=== PATIENT | male | born 2000 | race Asian ===

== ENCOUNTER 2021-07-13 08:00 | Outpatient (CLI) | payer BC ==
[2021-07-13 18:10] LABS: BASOPHILS # (AUTO) 0.1 10^3/uL (0.0-0.1); BASOPHILS % (AUTO) 0.9 %; EOSINOPHILS # (AUTO) 0.1 10^3/uL (0.0-0.7); HCT - HEMATOCRIT 49.5 % (42.0-52.0); HGB - HEMOGLOBIN 16.1 g/dL (14.0-18.0); LYMPHOCYTES # (AUTO) 2.4 10^3/uL (1.5-3.5); MEAN CORPUSCULAR HEMOGLOBIN 29.8 pg (27.0-31.0); MEAN CORPUSCULAR HGB CONC 32.5 g/dL (32.0-36.0); MEAN CORPUSCULAR VOLUME 91.5 fL (80.0-94.0); MONOCYTES # (AUTO) 0.5 10^3/uL (0.0-1.0); MONOCYTES % (AUTO) 5.8 %; NEUTROPHILS # (AUTO) 4.7 10^3/uL (1.5-6.6); NEUTROPHILS % (AUTO) 60.9 %; PLT - PLATELET COUNT 385 10^3/uL (130-450); RED BLOOD COUNT 5.41 10^6/uL (4.70-6.10); RED CELL DISTRIBUTION WIDTH 13.2 % (12.0-15.0); WHITE BLOOD COUNT 7.7 x10^3/uL (4.8-10.8)
[2021-07-13 18:30] LABS: ALBUMIN 4.9 g/dL (3.2-5.5); ALBUMIN/GLOBULIN RATIO 1.4 (1.0-2.2); ALKALINE PHOSPHATASE 41 IU/L (42-121); ALT ALANINE AMINOTRANSFERASE 16 IU/L (10-60); AST ASPARTATE AMINOTRANSFERASE 18 IU/L (10-42); BILIRUBIN,TOTAL 0.9 mg/dL (0.2-1.0); BUN - BLOOD UREA NITROGEN 15 mg/dL (6-20); CALCIUM 9.8 mg/dL (8.5-10.3); CARBON DIOXIDE - CO2 29 mmol/L (21-32); CHLORIDE 103 mmol/L (101-111); CHOL/HDL RATIO 3.9 (<5.0); CHOLESTEROL 162 mg/dL; CREATININE 0.9 mg/dL (0.6-1.2); GFR - MDRD 106 (>89); GLUCOSE 84 mg/dL (70-100); HDL CHOLESTEROL 42 mg/dL; LDL CHOLESTEROL,CALCULATED 93 mg/dL; LDL/HDL RATIO 2.2 (<3.6); POTASSIUM 4.4 mmol/L (3.5-5.0); SODIUM 141 mmol/L (135-145); TOTAL PROTEIN 8.4 g/dL (6.7-8.2); TRIGLYCERIDES 133 mg/dL; VLDL CHOLESTEROL 27 mg/dL
[2021-07-13 18:39] LABS: THYROID STIMULATING HORMONE 1.79 uIU/mL (0.34-5.60)
== END 2021-07-13 23:59 | disposition home or self-care (01) ==
LOC: LAB.WCP 08:00
PROVIDERS: ATTEND Physician Assistant Medical
DX: Z00.00 Encounter for general adult medical examination without abnormal findings (principal); F41.9 Anxiety disorder, unspecified; F32.9 Major depressive disorder, single episode, unspecified
CPT/HCPCS: 36415; 80053; 80061; 82306; 82607; 83721; 84443; 85025

== ENCOUNTER 2021-12-13 15:25 | Outpatient (CLI) | payer BC ==
[2021-12-13 16:29] VITALS: BP 128/78
--- NOTE | 2021-12-13 16:29 | SLEEP CARE CONSULTATION ---
Information from patient questionnaire entered by Jessica Khanna MA. I have reviewed and concur with the information entered by Jessica Khanna MA. This document represents the service I personally performed and the decisions made by , Aruna Santos ARNP. History of Present Illness Service Date and Time: 12/13/2021 1525 Reason for Visit: New patient (ONSET 10/2011, NO PRIORS,) Chief Complaint: reports: Unrefreshed sleep, Snoring, Excessive daytime sleepine ss, Fatigue, Frequent awakenings at night Date of Onset: 10 PLUS YEARS Time it takes to fall asleep: LESS THAN 30 MINUTES Snores at night: Yes Observed to quit breathing while asleep: No Sleeps alone due to snoring: No Number of times waking at night: MULTIPLE Reasons for waking at night: reports: Other Toss, Turn, or Twitch while sleeping: Yes Recalls having dreams: No Usually gets out of bed at: [id number] Feels refreshed in the morning: No Morning headache: Yes Sleepy or fatigued during the day: Yes Ever fallen asleep while driving: No Takes day naps: No Dreams during day naps: No Prior sleep studies: No Additional HPI information: I had the pleasure of seeing YOUSUF LANGE today regarding the possibility of him having a sleep disorder. His current complaints are excessive daytime sleepiness, fatigue, frequent night awakenings, snoring and unrefreshed sleep. The patient tells me that he normally goes to bed around 10:30-11:30 pm, and it takes him approximately 10 minutes to fall asleep. He has been told that he snores loudly and irregularly at night. He has not been observed to stop breathing in his sleep. He sleeps alone. He can recall waking up on the average of 1-2 times during the night in the past. He is using a Sleep Cycle Arthur that tells him he is waking up multiple times a night that he does not remember and that he is not getting deep sleep very often. He has not awakened for his own snoring, choking, and having to gasp for air. There is a lot of tossing and turning in his sleep. Generally there is no recollection of dreams. He usually wakes up at [id number] and does not feel refreshed. He usually does sometimes have a morning headache, especially if he is dehydrated or takes melatonin out of schedule. During the day he complains of feeling sleepy and fatigued. He has never fallen asleep while driving nor has any accident due to sleepiness. He usually does not take naps during the day. If he naps, upon falling asleep during the day he denies having vivid dreams. There is somniloquy (sleep talking) and somnambulism (sleep walking) as a child. He has never experienced sleep paralysis, cataplexy, or symptoms of restless leg syndrome. He reports having impaired concentration during the day. - Parasomnia Symptoms Ever been unable to move upon waking from sleep: No Walks in sleep: Yes Talks in sleep: Yes Ever acted out dreams in sleep: No Ever felt weak in the knees when startled or emotional: No Bothered by creepy, crawly, restless sensations in legs: No Problems with memory or concentration: Yes Subjective Initial [place] Sleepiness Scale score: 8 (2021) Past Medical History Past Medical History: reports: Anxiety, Depression, Attention deficit (he has had palpitations in past due to his Adderall) Social History The patient's occupation is a [employer]. Patient is Single and lives in . Have you smoked in the past 12 months: No Alcohol use: No Caffeine use: Yes Caffeine amount and frequency: very rarely Family History Family history of sleep disordered breathing: No (snoring) Family Hx Sleep Apnea: Mother: Snoring, Father: Snoring Allergies and Home Medications Known drug allergies: No Drug allergies reviewed: Yes Home medication list reviewed: Yes (10 MG ADDERALL XR) Review of Systems Weight gain over past 5 years: 15 Weight loss over past 5 years: 5-10 Cardiovascular: reports: high blood pressure, palpitations (PER ROS, STATED CHEST/ PALP, ASKED IF EXPER IT TODAY PT RESPONDED IN NEG), chest pain (PER ROS, STATED CHEST/ PALP, ASKED IF EXPER IT TODAY PT RESPONDED IN NEG) Respiratory: reports: shortness of breath, wheeze Gastrointestinal: reports: heartburn, diarrhea, abdominal pain Psychiatric: reports: Attention Deficit Hyperactivity, anxiety, depression Ear/Nose/Throat: reports: nasal congestion, sinus problems Musculoskeletal: reports: muscle pain or cramping Physical Exam Vital signs obtained and entered by: Valentin KHANNA [facility] Blood Pressure: 128/78 (RIGHT, PULSE93, RESP 16,) Heart Rate: 107 O2 Saturation: 98 (PAPER MASK) Height: 5 ft 9 in Weight: 162 lb 2 oz Body Mass Index: 23.9 BMI Classification: Healthy weight Neck circumference: 15.5 (inches) Nostrils: patent to airflow Mouth and throat: narrow oropharynx Soft palate: long Hard palate: arched Uvula: normal Uvula visualization: 50% Mallampati Class II Tongue: enlarged in size with teeth frost on lateral edges Tonsils: small Neck: normal w/o lymphadenopathy or thyromegaly Heart: regular rate and rhythm Lungs: clear bilaterally Impression and Plan 1. Suspected Obstructive Sleep Apnea-Hypopnea Syndrome, as suggested by a history of loud and irregular snoring, morning headache, frequent awakening during the night, unrefreshed sleep, cognitive impairment, and excessive daytime sleepiness. Narrow oropharynx and obesity are common predisposing factors for obstructive sleep apnea-hypopnea syndrome. I recommend proceeding to polysomnography to confirm the diagnosis and to assess severity. If the patient has significant sleep disordered breathing, a manual CPAP titration study will also be performed to find the optimal treatment pressure. I informed the patient of what the sleep studies involve and after some discussion, obtained agreement to proceed. The pathophysiology of obstructive sleep apnea-hypopnea syndrome was discussed with the patient and health risks of cardiovascular and cerebrovascular disease if not treated. AASM brochure for obstructive sleep apnea-hypopnea syndrome given and reviewed. 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 Patient agreed to plan. * Schedule polysomnography * Avoid long distance driving or driving when feeling sleepy. * Avoid alcohol, sedative and muscle relaxant around bedtime. * Attempt to lose weight. * Review instructions provided by trained office staff on how to prepare for the sleep study. * Return for follow-up after sleep study completed. Counseling Topics: Weight control Visit Type: In Office Time Spent with Patient (minutes): 24 Provider Statement: I spent 100% of the Face to Face Visit with the patient with greater than 50% spent counseling the patient and coordination of care.
== END 2021-12-13 15:26 | disposition home or self-care (01) ==
LOC: SC 15:25
PROVIDERS: ATTEND Nurse Practitioner Family
DX: G47.10 Hypersomnia, unspecified (principal); G47.8 Other sleep disorders; R51.9 Headache, unspecified; R41.89 Other symptoms and signs involving cognitive functions and awareness; R06.83 Snoring
CPT/HCPCS: 99203; 99212

== ENCOUNTER 2021-12-26 14:58 | Outpatient (CLI) | payer BC | END 2021-12-26 14:59 | disposition home or self-care (01) | LOC: SC 14:58 | PROVIDERS: ATTEND Nurse Practitioner Family | DX: G47.10 Hypersomnia, unspecified (principal); R53.83 Other fatigue; G47.8 Other sleep disorders; R06.83 Snoring; F32.A Depression, unspecified ==

== ENCOUNTER 2021-12-27 13:37 | Outpatient (CLI) | payer BC | END 2021-12-27 13:38 | disposition home or self-care (01) | LOC: SC 13:37 | PROVIDERS: ATTEND Nurse Practitioner Family | DX: G47.10 Hypersomnia, unspecified (principal); R53.83 Other fatigue; G47.8 Other sleep disorders; R06.83 Snoring; F32.A Depression, unspecified | CPT/HCPCS: 95806 ==

== ENCOUNTER 2022-01-05 13:45 | Outpatient (CLI) | payer BC ==
[2022-01-05 14:23] VITALS: BP 135/75
--- NOTE | 2022-01-05 14:23 | SLEEP CARE CONSULTATION ---
Information from patient questionnaire entered by Jessica Skinner MA. I have reviewed and concur with the information entered by Jessica Skinner MA. This document represents the service I personally performed and the decisions made by Tom elizalde Caren J, ARNP. History of Present Illness Service Date and Time: 01/05/2022 1345 Initial [place] Sleepiness Scale score: 8 (2021) Current [place] Sleepiness Scale score: 13 (12/2021) Additional HPI information: YOUSUF LANGE returns for follow up and results of the recently performed home sleep study. The patient was informed of the following findings: No significant sleep disordered breathing with an average AHI of 0.8 and bib oxygen saturation of 91%. I explained the pathophysiology behind obstructive sleep apnea. Patient does not have sleep apnea and was advised how weight gain could increase the risk of developing sleep apnea in the future. Patient has light snoring. Snoring can be reduced by weight loss. Patient does not drink alcohol. Patient was cautioned about risks of drowsy driving until sleepiness symptoms resolve. Sleep Study - Results Type of Sleep Study: Home sleep study (F/U HOME STUDY) Prior sleep studies: No Polysomnography/Home Sleep Study results: Physician Impression: The quality of the study is good. The length of the study is adequate (> 240 minutes) but the patient appeared to be awake a lot. Please also see the tabulated and graphic data. 1. No significant sleep disordered breathing, with an AHI of 0.8/hr and bib Sa O2 of 91%. During the study, the patient had 5 apneas (5 obstructive, 0 central, 0 mixed) and 3 hypopneas. The longest episode lasted 65.0 seconds. The patient slept mostly supine (supine AHI was 0.7 and non-supine, 1.04). Allergies and Home Medications Known drug allergies: Yes (ENVIROMENTAL) Drug allergies reviewed: Yes Home medication list reviewed: Yes (Adderall IR 10 mg) Review of Systems Review of systems same as previous: Yes (ADHD since October) Physical Exam Vital signs obtained and entered by: NÉSTOR CAMPOS Blood Pressure: 135/75 (LEFT, RESP 18, PULSE 104,) Heart Rate: 107 O2 Saturation: 97 (PAPER MASK) Height: 5 ft 9 in Weight: 163 lb Body Mass Index: 24.0 BMI Classification: Healthy weight Impression and Plan 1. Suspected Obstructive Sleep Apnea-Hypopnea Syndrome, as suggested by a history of loud and irregular snoring, frequent awakening during the night, unrefreshed sleep, cognitive impairment, and excessive daytime sleepiness. He completed a HST which was negative but he states he did not sleep normally that night and he feels he is getting sufficient amounts of sleep and still waking up tired and exhausted throughout the day. He does state he has a lot of stress in his life and possible depression. He just started on Adderall in October of 2020 for ADHD. I recommend proceeding to polysomnography to confirm the diagnosis and to assess severity. If the patient has significant sleep disordered breathing, a manual CPAP titration study will also be performed to find the optimal treatment pressure. I informed the patient of what the sleep studies involve and after some discussion, obtained agreement to proceed. The pathophysiology of obstructive sleep apnea-hypopnea syndrome was discussed with the patient and health risks of cardiovascular and cerebrovascular disease if not treated. 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 Patient agreed to plan. * Schedule polysomnography +- manual CPAP titration study and return in 1-2 weeks after the study to discuss results. * Avoid long distance driving or driving when feeling sleepy. * Avoid alcohol, sedative and muscle relaxant around bedtime. * Attempt to lose weight. * Review instructions provided by trained office staff on how to prepare for the sleep study. * Return for follow-up after sleep study completed. Visit Type: In Office Time Spent with Patient (minutes): 23 Provider Statement: I spent 100% of the Face to Face Visit with the patient with greater than 50% spent counseling the patient and coordination of care.
== END 2022-01-05 13:46 | disposition home or self-care (01) ==
LOC: SC 13:45
PROVIDERS: ATTEND Nurse Practitioner Family
DX: G47.10 Hypersomnia, unspecified (principal); R53.83 Other fatigue; G47.8 Other sleep disorders; R06.83 Snoring
CPT/HCPCS: 99212; 99213